=== PATIENT | female | born 1990 | race Caucasian/White ===

== ENCOUNTER 2017-07-12 11:42 | Observation (INO) ==
[2017-07-12] MEDS ORDERED: *HR* HYDROmorphone (PF) 1 MG/ML SYRINGE IVP PRN (12:30)
[2017-07-12] MEDS ORDERED: Ringers Solution, Lactated 1,000 ML IVC SCH (12:30)
[2017-07-12] MEDS ORDERED: Ketorolac 30 MG/ML VIAL IVP PRN (12:31)
--- NOTE | 2017-07-12 12:35 | OB/GYN History & Physical ---
Date of Encounter: 07/12/17 Time of Encounter: 12:30 Assessment and Plan (1) Incomplete Current visit: Yes Status: Acute Patient was scheduled for suction dilatation and curettage History of Present Illness HPI: Ms. Ruffin is a 26 year old female 2 para 1 at approximately 8 weeks who presented for suction D&C secondary to retained products. Patient was seen in emergency room last week which was diagnosed with an incomplete . Patient's been bleeding heavy and having severe cramping ever since repeat ultrasound in the office today showed no pole however endometrium was 3-1/ 2 cm with increased flow suggestive of retained products. The cut she is having severe cramping and bleeding is still recommended suction D&C. Patient' s mother was with her and stated that her mother which would be the patient's maternal grandmother had a history of malignant hyperthermia Past Med Surg Social Fam HX - Past Medical History Source: patient, old records reviewed Medical history: no medical history, other (History of IV drug abuse, history of hepatitis C) Psychiatric history: no psych history - Past Surgical History Surgical History: cholecystectomy, other (Tonsils and adenoids) - Social History Smoking Status: Current some day smoker Smokeless Tobacco Status: No Alcohol use: rarely Drug use: none, other (Past history of IV 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 Obstetrical History - Pregnancies : 2 Para: 1 Livin Medications and Allergies Promethazine [Phenergan] 12.5 mg PO Q6HR #15 tablet 06/23/17 [Rx] Nitrofurantoin (BID) [Macrobid] 100 mg PO BID #14 capsule 07/07/17 [Rx] Ondansetron ODT [Zofran ODT] 4 mg SL Q6HR #12 tab.rapdis 07/07/17 [Rx] Ibuprofen [Motrin] 800 mg PO Q8HR PRN #30 tablet 07/08/17 [Rx] 3 Allergy/AdvReac Type Severity Reaction Status Date / Time No Known Allergies Allergy Verified 07/08/17 09:21 Review of System OB All systems PM: reviewed and no additional remarkable complaints except as stated - Genitourinary Genitourinary: abnormal vaginal bleeding (With severe cramping) Exam - Vital Signs Vital signs: Initial Vital Signs Temp Pulse Resp BP Pulse Ox 98.4 F 92 16 99/65 99 07/12/17 12:00 07/12/17 12:00 07/12/17 12:00 07/12/17 12:00 07/12/17 12:00 - Constitutional Constitutional: well developed, well nourished, average body habitus, moderate distress - HEENT HEENT: PERRL - Neck Neck exam: full ROM - Lungs Respiratory exam: CTAB - Cardiovascular Cardiovascular exam: RRR - Abdomen Abdomen: Present: bowel sounds normal - Uterus Uterus exam: Present: tender Results All other labs normal.
--- NOTE | 2017-07-12 13:43 | Anesthesia Evaluation PreOp ---
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 used heroin in the past) Medications and Allergies Promethazine [Phenergan] 12.5 mg PO Q6HR #15 tablet 06/23/17 [Rx] Nitrofurantoin (BID) [Macrobid] 100 mg PO BID #14 capsule 07/07/17 [Rx] Ondansetron ODT [Zofran ODT] 4 mg SL Q6HR #12 tab.rapdis 07/07/17 [Rx] Ibuprofen [Motrin] 800 mg PO Q8HR PRN #30 tablet 07/08/17 [Rx] 3 Allergy/AdvReac Type Severity Reaction Status Date / Time No Known Allergies Allergy Verified 07/08/17 09:21 - Meds/Allergy Pre-op Review Medications Reviewed: Yes Allergies Reviewed: Yes Beta Blockers on Current Med List: No Anesthesia Results - Labs Laboratory Tests 06/23/17 07/07/17 07/07/17 22:36 18:10 18:10 WBC 16.9 H Hgb 11.2 L Hct 31.4 L Plt Count 95 L Sodium 130 L Potassium 3.1 L Chloride 100 Carbon Dioxide 20 BUN 15 Creatinine 0.60 Est GFR (Non-Af Amer) > 60 Glucose 109 H Beta HCG, Quant Urine Test Positive A Enterobacteriac sp PCR Serratia marcescens PCR 07/08/17 07/09/17 11:46 16:26 WBC Hgb Hct Plt Count Sodium Potassium Chloride Carbon Dioxide BUN Creatinine Est GFR (Non-Af Amer) Glucose Beta HCG, Quant 8514 H Urine Test Enterobacteriac sp PCR DETECTED A Serratia marcescens PCR DETECTED A - Imaging EKG: image reviewed Anesthesia Exam Vital Signs Temp Pulse Resp BP Pulse Ox 07/12/17 12:00 98.4 F 92 16 99/65 99 Intake and Output 07/11/17 07/12/17 07/12/17 23:59 07:59 15:59 Other: Weight 71 kg Patient Weight 07/12/17 23:59 Weight 71 kg Height: 5'2" Weight: 156# BMI = 28.6 NPO (# of Hours): MNOc Pain Scale Used: Numeric (1 - 10) - HEENT Pupil (Motor): Pupils equal, EOMI Mallampati: II Teeth: Normal Oral Opening: Greater than 3 - REFRIGERATION UNIT REPAIRER LOC: Oriented REFRIGERATION UNIT REPAIRER Motor: Normal RUE, Normal LUE, Normal RLE, Normal LLE, Normal Face REFRIGERATION UNIT REPAIRER Sensory: Normal: RUE, LUE, RLE, LLE, Face - Cardiac Rhythm: Regular Murmur: None - Pulmonary Breath Sounds: bilateral Clear Respiratory Effort: Symmetrical Anesthesia Assess/Plan ASA Score: 2 (Smoker, Hep C, Hx of IVDA) Modified James Scale for Level of Consciousness: Cooperative, oriented, and tranquil Anesthetic Plan: General Monitoring Plan: Standard Monitors Recovery Plan: PACU Anes Supervising Prov Stmt: Pt seen/evaluated, R&B Discussed, questions answered and consent obtained. Rashaun Meeks MD
[2017-07-12] MEDS ORDERED: Propofol 500 MG/50 ML INFUS..BTL ONE (14:04)
[2017-07-12] MEDS ORDERED: Lidocaine -MPF 2% 2 ML VIAL ONE (14:05)
[2017-07-12] MEDS ORDERED: *HR* FentaNYL (PF) 100 MCG/2 ML VIAL ONE ×2 (14:06→14:52)
[2017-07-12] MEDS ORDERED: *HR* Midazolam HCl 2 MG/2 ML VIAL ONE (14:06)
[2017-07-12] MEDS ORDERED: Famotidine 20 MG/2 ML VIAL ONE (14:15)
[2017-07-12] MEDS ORDERED: Metoclopramide 10 MG/2 ML VIAL ONE (14:15)
[2017-07-12] MEDS ORDERED: Methylergonovine 0.2 MG/ML AMPUL IM ONE (14:27)
[2017-07-12] MEDS ORDERED: Levofloxacin 500 MG/100 ML 500 MG/100 ML BAG IVPB ONE ×2 (14:30→14:32)
[2017-07-12] MEDS ORDERED: Ibuprofen 800 MG TABLET PO PRN (15:01)
--- NOTE | 2017-07-12 15:04 | Operative Note ---
Date of procedure: 07/12/17 Pre-op diagnosis: incomplete Post-op diagnosis: same Procedure: suction Dilatation and currettage Complications: none Anesthesia: LORRAINEA Surgeon: Henry Quispe Estimated blood loss (cc): 100 Specimen: retained products of conception Condition: stable Disposition: PACU Procedure in Detail: Patient is a 26-year-old 2 para 1 at approximately 8-10 weeks who presented for suction D&C secondary to incomplete . Patient was seen in emergency room last week for pelvic pain and bleeding patient was diagnosed with a missed and was advised to follow-up in the office. Patient states that she has been bleeding all weekend having severe pain. Ultrasound in the office today showed thickened endometrium at 3.5 cm. Patient states she is bleeding heavy passing clots and having severe cramping. Recommended suction D&C. Procedure: Patient was taken to the operating room where general anesthesia was found be adequate. She was noted dorsal lithotomy position prepped and draped in usual fashion. Timeout was then obtained. A weighted speculum was placed in the vagina the anterior lip of the cervix was grasped with a single-tooth tenaculum uterus sounded to 10 cm. Bradshaw dilators used to dilate the cervix and an 8-Faroese suction curette was inserted D&C was performed removing large amounts of tissue. Curette was removed and 3 curette was inserted D&C was performed with no retained products. A second pass with the suction curette was performed with no retained products. Procedure was then terminated all instruments were removed from the vagina and the patient was taken to the recovery room in stable condition. All needles and sponge counts were correct times states she did receive Methergine 0.2 mg intraoperatively and antibiotics. Patient was sent to the floor and discharged home when stable.
[2017-07-12] MEDS ORDERED: Ketorolac 30 MG/ML VIAL IM ONE (15:19)
[2017-07-12] MEDS ORDERED: Acetaminophen IV 1,000 MG/100 ML INFUS..BTL IVPB ONE (15:20)
[2017-07-12] MEDS ORDERED: Ketorolac 30 MG/ML VIAL IVP ONE (15:28)
--- NOTE | 2017-07-12 16:01 | Anesthesia Evaluation Post Op ---
Date of Encounter: 07/12/17 Time of Encounter: 15:50 - Vital Signs Vital Signs: Vital Signs/O2 Sat/Glucose, Most Current Temp Pulse Resp BP Pulse Ox 07/12/17 15:51 63 22 103/73 96 07/12/17 15:41 98.6 F 62 20 107/78 96 07/12/17 15:31 63 19 115/79 96 07/12/17 15:21 67 17 111/77 95 07/12/17 15:11 99.9 F H 70 20 98/68 95 - Lungs Lungs: Clear Ascult./Percussion - Airway Airway: Non-obstructed - Cardiovascular Regular Rate - Mental Status Mental Status: Alert & Oriented, Answers Appropriately - Pain Pain Scale: 5 Pain Scale used: Numeric (1 - 10) - Nausea Vomiting Nausea Vomiting: Not Present - Hydration Hydration: Tolerates oral liquids, Has not voided - Discharge PostOp Status: Transfer Patient to floor Anes Supervising Prov Stmt: PT seen/evaluated, VSS And pt has met criteria for discharge to floor. - MD Constantino
[2017-07-12 16:30] VITALS: BP 111/67
[2017-07-12 16:57] LABS: Basophils % 0.5 %; Eosinophils # 0.3 K/mcL (0.0-0.6); Eosinophils % 3.5 %; Hematocrit 30.4 % (35.3-44.9); Hemoglobin 10.3 g/dL (11.5-15.4); Immature Granulocytes % 4.7 % (0-4); Lymphocytes # 1.5 K/mcL (0.6-4.6); Lymphocytes % 17.8 %; Mean Corpuscular HGB Conc 33.9 g/dL (31.6-35.5); Mean Corpuscular Hemoglobin 28.9 pg (28.0-33.3); Mean Corpuscular Volume 85.4 fL (83.0-100.0); Mean Platelet Volume 11.3 fL (9.4-12.4); Monocytes # 0.7 K/mcL (0.0-1.3); Monocytes % 8.3 %; Neutrophils # 5.4 K/mcL (1.6-8.9); Platelet Count 157 K/mcL (140-400); Red Blood Count 3.56 M/mcL (3.82-4.97); Red Cell Distribution Width 12.8 % (11.5-14.5); Segmented Neutrophils % 65.2 %
--- NOTE | 2017-07-12 18:18 | Discharge Summary ---
Date of Encounter: 07/12/17 Time of Encounter: 18:20 - Discharge Diagnosis (1) Incomplete Priority: Secondary Status: Acute (2) S/P dilatation and curettage Priority: Primary Status: Acute - Discharge Medications Prescriptions: Ibuprofen [Motrin] 800 mg PO Q8HR PRN #30 tablet PRN Reason: Pain Home Medications: Promethazine [Phenergan] 12.5 mg PO Q6HR #15 tablet 06/23/17 [Rx] Nitrofurantoin (BID) [Macrobid] 100 mg PO BID #14 capsule 07/07/17 [Rx] Ondansetron ODT [Zofran ODT] 4 mg SL Q6HR #12 tab.rapdis 07/07/17 [Rx] Ibuprofen [Motrin] 800 mg PO Q8HR PRN #30 tablet 07/12/17 [Rx] Allergies/Adverse Reactions: 3 Allergy/AdvReac Type Severity Reaction Status Date / Time No Known Allergies Allergy Verified 07/08/17 09:21 Data Procedures and tests throughout hospitalization: Laboratory Tests 07/12/17 16:45 WBC 8.3 D RBC 3.56 L Hgb 10.3 L Hct 30.4 L MCV 85.4 MCH 28.9 MCHC 33.9 RDW 12.8 Plt Count 157 D MPV 11.3 Immature Gran % 4.7 H Seg Neutrophils % 65.2 Lymphocytes % 17.8 Monocytes % 8.3 Eosinophils % 3.5 Basophils % 0.5 Neutrophils # 5.4 Lymphocytes # 1.5 Monocytes # 0.7 Eosinophils # 0.3 Basophils # 0.0 Labs on day of discharge: Labs from last 24 hours 07/12/17 16:45 WBC 8.3 D RBC 3.56 L Hgb 10.3 L Hct 30.4 L MCV 85.4 MCH 28.9 MCHC 33.9 RDW 12.8 Plt Count 157 D MPV 11.3 Immature Gran % 4.7 H Seg Neutrophils % 65.2 Lymphocytes % 17.8 Monocytes % 8.3 Eosinophils % 3.5 Basophils % 0.5 Neutrophils # 5.4 Lymphocytes # 1.5 Monocytes # 0.7 Eosinophils # 0.3 Basophils # 0.0 Date of admission: 07/12/17 12:02 Primary care physician: Mike Hendrickson MD Discharging clinician: Henry Quispe Anticipated date of discharge: 07/12/17 - Patient Status Disposition: Home, Self-Care Condition: Good Functional capacity at discharge: independent ambulation Overall status at discharge: patient is progressing back to baseline - Discharge Instructions Follow Up With: Mkie Hendrickson MD [Primary Care Provider] - Henry Quispe DO [Partnered Physician] - - Diet and Activity Activity: increase activity as tolerated Diet: advance to your usual diet Hospital Course [employer] Reason for admission: other (Incomplete ) Post op complications: None Discharge diagnosis: other Procedures: Suction dilatation curettage Hospital course: Eugene is a 26-year-old 2 para 1 at approximately 8-10 weeks who presented for suction D&C due to incomplete . Patient had been seen in emergency room last week where she was diagnosed with a missed patient was advised to follow-up in the office which she did today ultrasound today showed no pole however endometrium was thickened she been bleeding heavy having severe cramps recommended surgery. Patient did undergo a suction D &C without complications moderate amount of tissue was removed. Postoperative course was unremarkable she was discharged home with a prescription for Motrin 800 mg and Methergine 0.2 mg. On one of her visits in the emergency room last week patient had a high fever dated blood cultures and blood cultures came back positive today for serratia Marcescens, we will discharge patient home with ciprofloxacin 500 mg twice a day for 10 days she received Levaquin intraoperatively. Patient will follow-up in the office in 2 weeks patient's condition at the time of discharge was stable. Time Attestation: Total time spent providing and/or coordinating discharge services: Exam - Constitutional Vitals: Temp Pulse Resp BP Pulse Ox 98.5 F 72 16 111/67 99 07/12/17 16:29 07/12/17 16:29 07/12/17 16:29 07/12/17 16:29 07/12/17 16:29 General appearance IM: A&O X 3, no acute distress - Respiratory Respiratory exam: Present: CTAB - Cardiovascular Cardiovascular exam IM: Present: RRR - GI/Abdominal GI/Abdominal exam IM: normal bowel sounds - Rectal Rectal exam: deferred
== END 2017-07-12 18:50 | disposition home or self-care (01) ==
LOC: 1NENUOBS
PROVIDERS: ADMIT Obstetrics & Gynecology; ATTEND Obstetrics & Gynecology